=== PATIENT | female | born 1990 | race Caucasian/White ===

== ENCOUNTER 2021-03-19 07:29 | Day surgery (SDC) | payer OTHER, SELFPAY ==
--- NOTE | 2021-03-18 09:25 | P.CONAN_ITS ---
Documented by User: Mell Leroy NP 03/18/21 09:25 HPI - Anesthesia Eval Consult details Narrative: 30yo F for Upper Endoscopy [facility] Past Medical History Medical History Abnormal colonoscopy Arthritis Asthma Crohn's disease Surgical History Surgical History (Updated 03/19/21 @ 08:21 by Batool Macdonald MD) H/O colonoscopy History of esophagogastroduodenoscopy (EGD) Social History Social History Patient Tobacco Use Status: Never used Tobacco Are you DNR?: No Advance Directives: No Advance Directives Information Provided: Yes Recently lost weight without trying: No Nutrition Risks: No Nutritional Risk FDLMP: 03/15/21 Meds Allergies Allergy/AdvReac Type Severity Reaction Status Date / Time azathioprine [From Imuran] Allergy Severe gi bleed Verified 03/19/21 08:12 amoxicillin [From Augmentin] Allergy Unknown Unknown Verified 03/18/21 14:22 clavulanic acid Allergy Unknown Unknown Verified 03/18/21 14:22 [From Augmentin] cefaclor [From Ceclor] Allergy Unknown Verified 03/18/21 14:21 Home Medications Medication Instructions Recorded Confirmed Last Taken Type adalimumab 40 mg/0.8 mL 40 mg SUBCUT Q2W 03/12/21 03/12/21 Unknown History subcutaneous syringe kit (Humira) mesalamine 800 mg tablet,delayed 800 mg PO BID 03/12/21 03/12/21 Unknown History release omeprazole 40 mg capsule,delayed 40 mg PO DAILY 03/12/21 03/12/21 Unknown History release Exam Exam Date and Time: March 18, [id number] Assessment and Plan Assessment Anesthesia Assessment: Chart Reviewed Documented by User: Batool Macdonald MD 03/19/21 08:23 [facility] Past Medical History Medical History Abnormal colonoscopy Arthritis Asthma Crohn's disease Family History Family history of problems with anesthesia: No Surgical History Surgical History (Updated 03/19/21 @ 08:21 by Batool Macdonald MD) H/O colonoscopy History of esophagogastroduodenoscopy (EGD) History of Problems with Anesthesia: No Social History Social History Patient Tobacco Use Status: Never used Tobacco Are you DNR?: No Advance Directives: No Advance Directives Information Provided: Yes Recently lost weight without trying: No Nutrition Risks: No Nutritional Risk FDLMP: 03/15/21 Meds Allergies Allergy/AdvReac Type Severity Reaction Status Date / Time azathioprine [From Imuran] Allergy Severe gi bleed Verified 03/19/21 08:12 amoxicillin [From Augmentin] Allergy Unknown Unknown Verified 03/18/21 14:22 clavulanic acid Allergy Unknown Unknown Verified 03/18/21 14:22 [From Augmentin] cefaclor [From Ceclor] Allergy Unknown Verified 03/18/21 14:21 Home Medications Medication Instructions Recorded Confirmed Last Taken Type adalimumab 40 mg/0.8 mL 40 mg SUBCUT Q2W 03/12/21 03/12/21 Unknown History subcutaneous syringe kit (Humira) mesalamine 800 mg tablet,delayed 800 mg PO BID 03/12/21 03/12/21 Unknown History release omeprazole 40 mg capsule,delayed 40 mg PO DAILY 03/12/21 03/12/21 Unknown History release Exam Height,Weight and Vital Signs: Height 5 ft 4 in Weight 72 kg Vital Signs Temp Pulse Resp BP Pulse Ox 03/19/21 08:01 98.8 F 98 18 122/79 97 Pertinent Lab Results Pertinent Lab Results: Lab Results 03/19/21 Range/Units 07:45 Urine Test NEGATIVE (NEGATIVE) Airway Mallampati Class: II TM Dist: >3cm Neck ROM: Full Loose/Missing/Broken Teeth: No Heart: RRR Lungs: CTAB Assessment and Plan Assessment Anesthesia Assessment: Anesthesia Plan Discussed Final Anesthetic Review Family History of Problems with Anesthesia: No History of Problems with Anesthesia: No NPO: Yes ASA Class: II Final Preanesthetic Review: No Changes in Pt Med Stat, Meds/Allgs Chart Reviewed, Consent Obtained/Reviewed and Anes Risks/Benef Reviewed Patient Risk: Low Procedure Risk: Low Assessment/Block/Sedation in SS: Assess/Block/Sedation-SS Anesthetic Plan Anesthetic Plan: MAC: Disposition: Standard PACU
[2021-03-19 08:01] VITALS: BP 122/79; PULSE 98; RESP 18; TEMP 37.1; O2SAT 97; BMI 27.2
[2021-03-19 08:03] LABS: UPreg QC Valid YES; Urine Pregnancy NEGATIVE (NEGATIVE)
--- NOTE | 2021-03-19 08:34 | P.HPSUR_ITS ---
Pre-Procedural Eval Section A Date of Service: 03/19/21 Section B Chief Complaint: epigastric pain Details of Present Illness: see H&P Relevant Family History (Specify if Yes): No Relevant Social History: None Present Medications: see Short Stay Collaborative assessment Medical History: Significant History Allergies: Allergies Allergy/AdvReac Type Severity Reaction Status Date / Time azathioprine [From Imuran] Allergy Severe gi bleed Verified 03/19/21 08:12 amoxicillin [From Augmentin] Allergy Unknown Unknown Verified 03/18/21 14:22 clavulanic acid Allergy Unknown Unknown Verified 03/18/21 14:22 [From Augmentin] cefaclor [From Ceclor] Allergy Unknown Verified 03/18/21 14:21 Review of Systems Sugical H&P ROS: Negative: Constitution, Cardiovascular, Respiratory, Neurological, Psychiatric, Hem-Onc, Allergic/Immunologic, Gastrointestinal, Ge nitourinary, Musculoskeletal, Integumentary, Endocrine and Eyes/Ears/Nose/Throat Exam Surgical H&P Exam: Normal: HEENT, Normal: Heart, Normal: Lungs, Normal: Extremities, Normal: Abdomen, Normal: Skin and Normal: Neurological Plan Diagnosis/Plan: Unchanged I have reviewed the history and physical and performed a pertinent physical examination on my patient. No changes have occurred unless specified.
[2021-03-19] MEDS: Lactated Ringers 1,000 ML 100 ML IVCONT (08:49)
[2021-03-19 08:57] VITALS: BP 110/65; PULSE 71; RESP 18; TEMP 36.1; O2SAT 99
--- NOTE | 2021-03-19 09:00 | PM.OP ---
Brief Operative Note Date of Service: 03/19/21 Pre-op diagnosis: epigastric pain Post-op diagnosis: same Procedure: egd Surgeon: David Hubbard Anesthesia: MAC Was an Shoemaking Finisher used for this Procedure?: No Estimated blood loss (mL): 5 Pathology: other (bxs) Condition: stable Disposition: PACU
[2021-03-19 09:13] VITALS: BP 116/72; PULSE 78; RESP 16; TEMP 36.1; O2SAT 97
--- NOTE | 2021-03-19 09:30 | OP_ITS ---
SURGEON: David Hubbard MD INDICATIONS: Epigastric pain. PREOPERATIVE DIAGNOSIS: POSTOPERATIVE DIAGNOSIS: PROCEDURE PERFORMED: Upper endoscopy with biopsy. ESTIMATED BLOOD LOSS: COMPLICATIONS: ANESTHESIA: ASSISTANTS: SPECIMENS: MEDICATIONS: Monitored anesthesia care. DESCRIPTION OF PROCEDURE: History and physical performed. The risks and benefits of the procedure were explained to the patient. Informed consent was obtained and the patient placed in the left lateral decubitus position. The Olympus video gastroscope was introduced into the esophagus, stomach, duodenum. Examination was performed. The scope was removed. She tolerated the procedure well and was taken to recovery in stable condition. FINDINGS: Esophagus: The esophagus was normal. There was no esophagitis. Biopsies were obtained from the EG junction. Stomach: Stomach showed no evidence of masses or ulcers. There were multiple benign-appearing gastric polyps, largest measuring approximately 15 x 15 mm. Biopsies were obtained from 2 of the polyps. These appeared consistent with fundic gland polyps that were present in the body and fundus. Antral biopsies were obtained to rule out H pylori. Duodenum: The bulb and second portion were normal. Biopsies were obtained from the second portion. IMPRESSION: Gastric polyps. RECOMMENDATION: Follow up with the biopsy results. MD JASPREET Merchant/NIDHI / [id number]
== END 2021-03-19 09:50 | disposition home or self-care (01) ==
PROVIDERS: Nurse Practitioner; PCP Internal Medicine Geriatric Medicine; Visit Provider Internal Medicine Gastroenterology
PROC: 0DJ08ZZ Inspection of Upper Intestinal Tract, Via Natural or Artificial Opening Endoscopic (ICD-10-PCS; CPT 43235; principal; 2021-03-19 08:30)
DX: R10.13 Epigastric pain (principal); K31.7 Polyp of stomach and duodenum; K50.00 Crohn's disease of small intestine without complications; Z79.899 Other long term (current) drug therapy
CPT/HCPCS: 43239; 81025; 88305; 88342

== ENCOUNTER 2022-10-28 06:11 | Day surgery (SDC) | payer BC, SELFPAY ==
--- NOTE | 2022-10-27 08:43 | P.CONAN_ITS ---
Documented by User: Mell Leroy NP 10/27/22 08:43 HPI - Anesthesia Eval Consult details Narrative: 31yo F for Colonoscopy [facility] Past Medical History Medical History Abnormal colonoscopy Arthritis Asthma Crohn's disease Family History Family history of problems with anesthesia: No Surgical History Surgical History H/O colonoscopy History of esophagogastroduodenoscopy (EGD) History of Problems with Anesthesia: No Social History Social History Patient Tobacco Use Status: Never used Tobacco Are you DNR?: No Advance Directives: No Advance Directives Information Provided: Yes Nutrition Risks: No Nutritional Risk Meds Allergies Allergy/AdvReac Type Severity Reaction Status Date / Time azathioprine [From Imuran] Allergy Severe gi bleed Verified 10/28/22 06:41 amoxicillin [From Augmentin] Allergy Unknown Unknown Verified 10/28/22 06:41 clavulanic acid Allergy Unknown Unknown Verified 10/28/22 06:41 [From Augmentin] cefaclor [From Ceclor] Allergy Unknown Verified 10/28/22 06:41 Home Medications Medication Instructions Recorded Confirmed Last Taken Type adalimumab 40 mg/0.8 mL 40 mg subcut Q2W 03/12/21 10/28/22 Unknown History subcutaneous syringe kit (Humira) omeprazole 40 mg capsule,delayed 20 mg PO DAILY 03/12/21 10/28/22 Unknown History release montelukast 10 mg tablet 10 mg PO DAILY 10/27/22 10/27/22 Unknown History Exam Exam Date and Time: October 27, 2022 0843 Assessment and Plan Assessment Anesthesia Assessment: Chart Reviewed Final Anesthetic Review Family History of Problems with Anesthesia: No History of Problems with Anesthesia: No Documented by User: Mary Ann Owusu MD 10/28/22 07:17 [facility] Past Medical History Medical History Abnormal colonoscopy Arthritis Asthma Crohn's disease Surgical History Surgical History H/O colonoscopy History of esophagogastroduodenoscopy (EGD) Social History Social History Patient Tobacco Use Status: Never used Tobacco Are you DNR?: No Advance Directives: No Advance Directives Information Provided: Yes Nutrition Risks: No Nutritional Risk Meds Allergies Allergy/AdvReac Type Severity Reaction Status Date / Time azathioprine [From Imuran] Allergy Severe gi bleed Verified 10/28/22 06:41 amoxicillin [From Augmentin] Allergy Unknown Unknown Verified 10/28/22 06:41 clavulanic acid Allergy Unknown Unknown Verified 10/28/22 06:41 [From Augmentin] cefaclor [From Ceclor] Allergy Unknown Verified 10/28/22 06:41 Home Medications Medication Instructions Recorded Confirmed Last Taken Type adalimumab 40 mg/0.8 mL 40 mg subcut Q2W 03/12/21 10/28/22 Unknown History subcutaneous syringe kit (Humira) omeprazole 40 mg capsule,delayed 20 mg PO DAILY 03/12/21 10/28/22 Unknown History release montelukast 10 mg tablet 10 mg PO DAILY 10/27/22 10/27/22 Unknown History Exam Airway Mallampati Class: II TM Dist: >3cm Neck ROM: Full Heart: rrr Lungs: cta Assessment and Plan Assessment Anesthesia Assessment: Anesthesia Plan Discussed Final Anesthetic Review NPO: Yes ASA Class: II Final Preanesthetic Review: No Changes in Pt Med Stat, Meds/Allgs Chart Reviewed and Consent Obtained/Reviewed Patient Risk: Intermediate Procedure Risk: Intermediate Anesthetic Plan Anesthetic Plan: MAC: Disposition: Standard PACU
[2022-10-28 06:06] VITALS: BMI 27.5
[2022-10-28] MEDS: Lactated Ringers 1,000 ML 100 ML IVCONT (06:33)
[2022-10-28 06:42] VITALS: BP 137/77; PULSE 86; RESP 18; TEMP 36.6; O2SAT 98
[2022-10-28 06:42] LABS: UPreg QC Valid YES; Urine Pregnancy NEGATIVE (NEGATIVE)
--- NOTE | 2022-10-28 07:08 | PC.NURSE ---
last menstrual cycle was 10/11/22
--- NOTE | 2022-10-28 07:32 | P.HPSUR_ITS ---
Pre-Procedural Eval Section A Date of Service: 10/28/22 Section B Chief Complaint: Crohn's disease, unspecified, without complication Details of Present Illness: see H&P no changes Relevant Family History (Specify if Yes): No Relevant Social History: None Present Medications: see Short Stay Collaborative assessment Medical History: No relevant PMH History of Previous Operations: No relevant previous surgery Allergies: Allergies Allergy/AdvReac Type Severity Reaction Status Date / Time azathioprine [From Imuran] Allergy Severe gi bleed Verified 10/28/22 06:41 amoxicillin [From Augmentin] Allergy Unknown Unknown Verified 10/28/22 06:41 clavulanic acid Allergy Unknown Unknown Verified 10/28/22 06:41 [From Augmentin] cefaclor [From Ceclor] Allergy Unknown Verified 10/28/22 06:41 Review of Systems Sugical H&P ROS: Negative: Constitution, Cardiovascular, Respiratory, Neurological, Psychiatric, Hem-Onc, Allergic/Immunologic, Gastrointestinal, Genitourinary, Musculoskeletal, Integumentary, Endocrine and Eyes/Ears/Nos e/Throat Exam Surgical H&P Exam: Normal: HEENT, Normal: Heart, Normal: Lungs, Normal: Extremities, Normal: Abdomen, Normal: Skin and Normal: Neurological Plan Diagnosis/Plan: Unchanged I have reviewed the history and physical and performed a pertinent physical examination on my patient. No changes have occurred unless specified. Time Spent With Patient Time: Total time managing care of this patient today ____ minutes.
--- NOTE | 2022-10-28 08:02 | PM.OP ---
Brief Operative Note Date of Service: 10/28/22 Pre-op diagnosis: crohns Post-op diagnosis: same Procedure: colonoscopy Surgeon: David Hubbard Anesthesia: MAC Was an Replanting Machine Crewman used for this Procedure?: No Estimated blood loss (mL): 5 Pathology: other Condition: stable Disposition: PACU
[2022-10-28 08:06] VITALS: BP 110/60; PULSE 95; RESP 16; TEMP 36.2; O2SAT 95
--- NOTE | 2022-10-28 08:25 | OP_ITS ---
DATE OF SERVICE: 10/28/2022 SURGEON: David Hubbard MD INDICATIONS: Crohn disease. PREOPERATIVE DIAGNOSIS: POSTOPERATIVE DIAGNOSIS: PROCEDURE PERFORMED: Colonoscopy to the terminal ileum with biopsy. ESTIMATED BLOOD LOSS: COMPLICATIONS: ANESTHESIA: Monitored anesthesia care. ASSISTANTS: SPECIMENS: DESCRIPTION OF PROCEDURE: A history and physical were performed. The risks and benefits of the procedure were explained to the patient. Informed consent was obtained. The patient was placed in the left lateral decubitus position. A digital rectal exam was performed and was found to be normal. The Olympus pediatric video colonoscope was introduced into the rectum and advanced to the cecum without difficulty. The cecum was identified by transillumination, palpation, and identification of the ileocecal valve. Examination was performed. The scope was removed. She tolerated the procedure well and was returned to the recovery area in stable condition. FINDINGS: The terminal ileum was normal. Biopsies were obtained from the terminal ileum in 2 locations. This was explored for approximately 10 to 15 cm. There was no evidence of active Crohn disease endoscopically. Biopsies were obtained throughout the colon where the visualized colonic mucosa appeared within normal limits without evidence of masses, ulcers, or polyps. No endoscopic activity of Crohn disease was identified. Retroflexed examination was normal. The quality of prep was good. IMPRESSION: Crohn disease. RECOMMENDATION: Follow up the biopsy results. MD JASPREET Merchant/MANNYL / [id number]
[2022-10-28 08:36] VITALS: BP 107/63; PULSE 61; RESP 16; TEMP 36.9; O2SAT 97
== END 2022-10-28 09:35 | disposition home or self-care (01) ==
PROVIDERS: Nurse Practitioner; PCP Internal Medicine Geriatric Medicine; Visit Provider Internal Medicine Gastroenterology
PROC: 0DJD8ZZ Inspection of Lower Intestinal Tract, Via Natural or Artificial Opening Endoscopic (ICD-10-PCS; CPT 45378; principal; 2022-10-28 07:30)
DX: K50.90 Crohn's disease, unspecified, without complications (principal); K21.9 Gastro-esophageal reflux disease without esophagitis; J45.909 Unspecified asthma, uncomplicated; M06.9 Rheumatoid arthritis, unspecified; Z79.899 Other long term (current) drug therapy; Z88.1 Allergy status to other antibiotic agents; Z88.8 Allergy status to other drugs, medicaments and biological substances
CPT/HCPCS: 45380; 81025; 88305

== ENCOUNTER 2024-10-03 11:16 | Outpatient (REF) | payer BC, SELFPAY ==
[2024-10-03 11:57] LABS: Hematocrit 40.8 % (37.0-47.0); Hemoglobin 13.6 g/dl (12.0-16.0); Mean Corpuscular HGB Conc 33.3 g/dl (31.0-35.0); Mean Corpuscular Hemoglobin 31.3 pg (27.0-33.0); Mean Corpuscular Volume 93.8 fL (80.0-98.0); Mean Platelet Volume 10.5 fL (9.4-12.3); Platelet Count 357 X10*3/uL (160-400); Red Blood Count 4.35 X10*6/uL (4.20-5.50); Red Cell Distribution Width 12.3 % (11.0-16.0); White Blood Count 9.2 X10*3/uL (4.8-10.8)
[2024-10-03 12:34] LABS: Alanine Aminotransferase 23 U/L (0-31); Albumin Level 4.4 g/dL (3.5-5.0); Alkaline Phosphatase 115 U/L (39-117); Aspartate Amino Transferase 20 U/L (5-31); Bilirubin Direct 0.2 mg/dL (0.0-0.5); Bilirubin Total 0.4 mg/dL (0.0-1.0); Lipase 30 U/L (8-78); Total Protein 7.4 g/dL (6.5-8.0)
--- OUTSIDE RECORDS SUMMARY | 2024-10-03 12:50 | XMS_ITS | Patient Health Record ---
Author Organization [facility] Address [address] [place] [address] Care Team Providers Care Provider Network Manager Name Role Phone Aleksey SAAVEDRA, Michelle Primary Care Provider David Horn Jr Unavailable Allergies Allergen (clinical drug ingredient) Drug/Non Drug Allergy documented on EMR Reaction Allergy Type Onset Date Status amoxicillin / clavulanate Augmentin Unknown Drug Allergy Active Results Component Value Reference Range Notes Complete Blood Count no Diff (Not yet reviewed by provider) Interpretation: Performing Lab:[facility], [address] [place] [phone] Notes/Report: White Blood Count 9.2 4.8-10.8 X10*3/uL Red Blood Count 4.35 4.20-5.50 X10*6/uL Hemoglobin 13.6 12.0-16.0 g/dl Hematocrit 40.8 37.0-47.0 % Mean Corpuscular Volume 93.8 80.0-98.0 fL Mean Corpuscular Hemoglobin 31.3 27.0-33.0 pg Mean Corpuscular HGB Conc 33.3 31.0-35.0 g/dl Red Cell Distribution Width 12.3 11.0-16.0 % Platelet Count 357 160-400 X10*3/uL Mean Platelet Volume 10.5 9.4-12.3 fL NRBC Pct Auto 0.0 0.0-0.2 /100WBC NRBC Abs Auto 0.000 0.0-0.012 X10*3/uL Liver Panel (Not yet reviewe d by provider) Interpretation: Performing Lab:[facility], [address] [place] [phone] Notes/Report: Bilirubin Total 0.4 0.0-1.0 mg/dL Bilirubin Direct 0.2 0.0-0.5 mg/dL Aspartate Amino Transferase 20 5-31 U/L Alanine Aminotransferase 23 0-31 U/L Total Protein 7.4 6.5-8.0 g/dL Albumin Level 4.4 3.5-5.0 g/dL Alkaline Phosphatase 115 39-117 U/L Lipase (Not yet reviewed by provider) Interpretation: Performing Lab:[facility], [address] [place] [phone] Notes/Report: Lipase 30 8-78 U/L Reason For Referral No Information Medications Medication SIG (Take, Route, Frequency, Duration) Notes Start Date End Date Status Omeprazole 20 MG 1 capsule 30 minutes before morning meal Orally Once a day Active Montelukast Sodium 10 MG TAKE ONE TABLET BY MOUTH EVERY DAY Oral for 90 Active Humira Pen 40 MG/0.4ML Subcutaneous for 28 Active Multi Vitamin - 1 tablet Orally Once a day for 30 day(s) Active Mesalamine 800 MG TAKE TWO TABLETS BY MOUTH 3 TIMES A DAY for 30 days Active Immunizations Vaccine Route Administration Date Status Comme nts Influenza Unknown 05/10/2023 Administered Influenza Unknown 03/19/2024 Administered Social History Tobacco Use: Social History Observation Description Date Details (start date - stop date) Never Smoker NA - NA Tobacco Use/Smoking Question Answer Notes Patient is a nonsmoker Alcohol Screen Question Answer Notes Did you have a drink contain ing alcohol in the past year? Yes How often did you have a dri nk containing alcohol in the past year? Monthly or less (1 point) How many drinks did you have on a typical day when you were drinking in the past year? 1 or 2 drinks (0 point) How often did you have 6 or more drinks on one occasion in the past year? Never (0 point) Points 1 Interpretation Negative Problems Problem Type SNOMED Code ICD Code Onset Dates Problem Status W/U Status Risk Notes Problem Flatulence, eructation and gas pain (759556313) Bloating (R14.0) Active confirmed Problem 835855234 Gastroesophageal reflux disease without esophagitis (K21.9) Active confirmed Problem Benign neoplasm of stomach (90513904) Gastric polyps (K31.7) Active confirmed Problem Crohns disease (93759275) Crohns disease (K50.90) Active confirmed Problem RUQ pain (R10.11) Active confirmed Problem [id number] Crohn's disease without complication, unspecified gastrointestinal tract location (K50.90) Active confirmed Vital Signs Temperature 98.0 degrees Fahrenheit 07/03/2024 Blood pressure diastolic 00 mm Hg 07/03/2024 Height 64 in 07/03/2024 Blood pressure systolic 000 mm Hg 07/03/2024 Weight 161 lbs 07/03/2024 BMI 27.63 kg/m2 07/03/2024 Encounters Encounter Location Date Provider Diagnosis [facility] [address] [place] [phone] 07/03/2024 David Hubbard Jr Crohns disease K50.90 and Gastroesophageal reflux disease without esophagitis K21.9 [facility] [address] [place] [phone] 12/07/2023 David Hubbard Jr [facility] [address] [place] [phone] 10/02/2024 David Hubbard Jr RUQ pain R10.11 and Bloating R14.0 Assessments Encounter Date Diagnosis (ICD Code) Assessment Notes Treatment Notes Treatment Clinical Notes Section Notes 07/03/2024 Gastroesophageal reflux disease without esophagitis (ICD-10 - K21.9) We discussed gastroesophageal reflux disease today. We discussed Crohn's disease. She is doing well. She will continue her present medications. We discussed diet, lifestyle modifications, and weight management regarding the treatment of reflux. We reviewed her previous endoscopic workup today. Today's visit was 30 minutes. 07/03/2024 Crohns disease (ICD-10 - K50.90) Crohn disease material was printed We discussed gastroesophageal reflux disease today. We discussed Crohn's disease. She is doing well. She will continue her present medications. We discussed diet, lifestyle modifications, and weight management regarding the treatment of reflux. We reviewed her previous endoscopic workup today. Today's visit was 30 minutes. 10/02/2024 Bloating (ICD-10 - R14.0) 10/02/2024 RUQ pain (ICD-10 - R10.11) Plan Of Treatment Pending Test Test Name Order Date LIVER PROFILE 10/02/2024 LIPASE 10/02/2024 CBC w/o DIFF 10/02/2024 US ABD 10/02/2024 Complete Blood Count no Diff 10/03/2024 Liver Panel 10/03/2024 Lipase 10/03/2024 Future Test Test Name Order Date COLONOSCOPY 08/12/2022 Next Appt Details Provider Name:David sanchez , 07/07/2025 09:20:00 AM, [address] [facility], [address], [place], [address], Insurance Providers Payer Name Payer Address Payer Phone Subscriber Number Group Number Insured Name Patient Relationship to Insured Coverage Start Date Coverage End Date [facility] [address] [place], [place] [id number] SEVERO KUO Self - patient is the insured Medical (General) History Medical History History ICD Code Asthma Crohn's disease diagnosed ~ 2000, at that time she had genetic testing done through [facility]. She was followed by pediatric GI at [facility] and had several endoscopies and a colonoscopy. 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 Colonoscopy 07/2014, some scarring of terminal ileum, biopsies fairly unremarkable, colonoscopy 11/18 biopsies normal including terminal ileum Rheumatoid arthritis pneumonia/covid positive may 2022 Gastroesophageal reflux disease Surgical History Surgery Date(Month/Year) c section 03/18/2024
--- OUTSIDE RECORDS SUMMARY | 2024-10-03 12:50 | XMS_ITS ---
Author Organization [facility] Address [address] [place] [id number] Care Team Providers Care Pedodontist Name Role Phone Aleksey SAAVEDRA, Michelle Primary Care Provider David Horn Jr Unavailable [phone] Allergies Allergen (clinical drug ingredient) Drug/Non Drug Allergy documented on EMR Reaction Allergy Type Onset Date Status amoxicillin / clavulanate Augmentin Unknown Drug Allergy Active REASON FOR VISIT Patient presents today for crohns Medications Medication SIG (Take, Route, Frequency, Duration) [...] TIMES A DAY for 30 days Active Social History Tobacco Use: Social History Observation [...] Never (0 point) Points 1 Interpretation Negative Vital Signs Temperature 98.0 degrees Fahrenheit 07/03/19 25 Blood pressure systolic 000 mm Hg 07/03/19 25 Blood pressure diastolic 00 mm Hg 025 Height 64 in 07/03/2024 Weight 161 lbs 07/03/2024 BMI 27.63 kg/m2 07/03/2024 Encounters Encounter Location Date Provider Diagnosis [facility] [address] [place] [address] 07/03/2024 David Hubbard Jr Crohns disease K50.90 and Gastroesophageal reflux disease without esophagitis K21.9 Assessments Encounter Date Diagnosis (ICD Code) Assessment Notes Treatment Notes Treatment Clinical Notes Section Notes 07/03/2024 Crohns disease (ICD-10 - K50.90) Crohn disease material was printed We discussed gastroesophageal reflux disease today. We discussed Crohn's disease. She is doing well. She will continue her present medications. We discussed diet, lifestyle modifications, and weight management regarding the treatment of reflux. We reviewed her previous endoscopic workup today. Today's visit was 30 minutes. 07/03/2024 Gastroesophageal reflux disease without esophagitis (ICD-10 - K21.9) We discussed gastroesophageal reflux disease today. We discussed Crohn's disease. She is doing well. She will continue her present medications. We discussed diet, lifestyle modifications, and weight management regarding the treatment of reflux. We reviewed her previous endoscopic workup today. Today's visit was 30 minutes. Plan Of Treatment Treatment Notes Assessment Notes Crohns disease Crohn disease materi al was printed Next Appt Details Follow Up: 1 Year, Reason: Provider Name:David sanchez Jr, 07/07/2025 09:20:00 AM, [address] [place] [address], [address], [place], [phone], Progress Notes * SEVERO KUO ADOB: 2 (33 yo F)Acc No.[id number]:07/03/2024 Progress Notes Patient:?SEVERO KUO Provider:?David Hubbard MD :1990???Age:33 Y???Sex:Female D ate:07/03/2024 Address:[address] [place], [place] [id number] Pcp:Michelle Ryder MD Subjective: * Chief Complaints: * ???1. Patient presents today for crohns. * HPI: ???New symptom(s):? That he is a pleasant 33-year-old woman seen today in followup of Crohn's disease and gastroesophageal reflux disease. She was last seen in June 2023. Since that time she's done well. ?Her daughter, Christy, was born by section approximately 3 months ago. The was complicated by gestational diabetes but did not require insulin and was well-controlled with diet. Her Crohn's disease remained quiescent during her . It is generally remain the same since. She continues on Humira and mesalamine, and reports bowel movements are usually every other day. There is no rectal bleeding. She was somewhat anemic during her and did take iron supplements. We discussed that this is common. ?Reflux symptoms are well-controlled on OTC omeprazole, as it is not covered by her insurance. She has no dysphagia, hematemesis, or melena. She does note symptoms of reflux which can be fairly strong when she forgets to take medication. We discussed use of OTC liquid antacids for breakthrough symptoms. 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 She was followed by pediatric GI at [facility] and had several endoscopies and a colonoscopy. 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 Colonoscopy 07/2014, some scarring of terminal ileum, biopsies fairly unremarkable, colonoscopy 11/18 biopsies normal including terminal ileum, Rheumatoid arthritis, Pneumonia/covid positive may 2022, Gastroesophageal reflux disease. * Surgical History:?c section 03/18/2024. * Family History:?Father: blanca e, IBS.?Mother: alive.? NO HX OF COLON CANCER. NO FAMILY HISTORY OF LIVER CANCER. BROTHER PAST HX OF CROHN/ BROTHER NOW WELL. * Social History:?Tobacco Use:?Tobacco Use/Smoking?Patient is a?nonsmoker.?Drugs/Alcohol:?Alcohol Screen?Did you have a drink containing alcohol in the past year??Yes,?How often did you have a drink containing alcohol in the past year??Monthly or less (1 point), How many drinks did you have on a typical day when you were drinking in the past year??1 or 2 drinks (0 point),?How often did you have 6 or more drinks on one occasion in the past year??Never (0 point),?Points?1,?Interpretation?Negative.?Miscellaneous:?Marital status: single. 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 * Medications:?Taking Multi Vi tamin - Tablet 1 tablet Orally Once a day, Taking Humira Pen 40 MG/0.4ML Pen-injector Kit Subcutaneous , Taking Montelukast Sodium 10 MG Tablet TAKE ONE TABLET BY MOUTH EVERY DAY Oral , Taking Omeprazole 20 MG Capsule Delayed Release 1 capsule 30 minutes before morning meal Orally Once a day, Taking Mesalamine 800 MG Tablet Delayed Release TAKE TWO TABLETS BY MOUTH 3 TIMES A DAY , Medication List reviewed and reconciled with the patient * Allergies:?Augmentin. Objective: * Vitals:?Wt: 161 lbs, Ht: 64 in, BMI:27.63 Index, BP: 000/00 mm Hg, Temp: 98.0. * Examination: ???General Examination: ???On examination today, she appears well. Skin is anicteric. Lungs are clear. Heart shows regular rate and rhythm. Abdomen is soft without focal mass or tenderness. Her transverse lower abdominal incision is well-healed. Assessment: * Assessment: 1.?Crohns disease - K50.90 ( Primary)?2.?Gastroesophageal reflux disease without esophagitis - K21.9? We discussed gastroesophagea l reflux disease today. We discussed Crohn's disease. She is doing well. She will continue her present medications. We discussed diet, lifestyle modifications, and weight management regarding the treatment of reflux. We reviewed her previous endoscopic workup today. Today's visit was 30 minutes. Plan: * Treatment: * Procedure Codes:?G9745 DOC R SN FOR NOT SCREEN/REC F/U HBP * Preventive Medicine:? ??Counseling:?Care goal follow-up plan:?Above Normal BMI Follow-up?Giving encouragement to exercise,?BMI management provided?Yes.? * Follow Up:?1 Year * * Sign off status: Completed true * Provider:?David Hubbard MD Date:?0 07/03/2024 Generated for Juanjo sung/Jarocho/Abneritting on:?10/03/2024 12:50 PM EDT History and Physical Notes * HPI (History of Present Illness) Category Sub-Category Detail Notes Category Not es New symptom(s) That he is a pleasant 33-year-old woman seen today in followup of Crohn's disease and gastroesophageal reflux disease. She was last seen in June 2023. Since that time she's done well. Her daughter, Christy, was born by section approximately 3 months ago. The was complicated by gestational diabetes but did not require insulin and was well-controlled with diet. Her Crohn's disease remained quiescent during her . It is generally remain the same since. She continues on Humira and mesalamine, and reports bowel movements are usually every other day. There is no rectal bleeding. She was somewhat anemic during her and did take iron supplements. We discussed that this is common. Reflux symptoms are well-controlled on OTC omeprazole, as it is not covered by her insurance. She has no dysphagia, hematemesis, or melena. She does note symptoms of reflux which can be fairly strong when she forgets to take medication. We discussed use of OTC liquid antacids for breakthrough symptoms. Examination Category Sub-Category Detail Notes Category Not es General Examination On exami nation today, she appears well. Skin is anicteric. Lungs are clear. Heart shows regular rate and rhythm. Abdomen is soft without focal mass or tenderness. Her transverse lower abdominal incision is well-healed.
--- OUTSIDE RECORDS SUMMARY | 2024-10-03 12:50 | XMS_ITS ---
Author Organization [facility] Address [address] [place] [address] [place] [phone] Care Team Providers Care Technology Assistant Name Role Phone Aleksey SAAVEDRA, Michelle Primary Care Provider Jv Hubbard Jr, David Mcclellan REASON FOR VISIT refill mesalamine Medications Medication SIG (Take, Route, Fr equency, Duration) Notes Start Date End Date Status Mesalamine 800 MG TAKE TWO TABLETS BY MOUTH 3 TIMES A DAY for 30 days Active Encounters Encounter Location Date Provider Diagnosis [facility] [address] [place] [phone] 12/07/2023 David Hubbard Jr Plan Of Treatment Medication Medication Name Sig Start Date Stop Date Notes Mesalamine 800 MG TAKE TWO TABLETS BY MOUTH 3 TIMES A DAY for 30 days Next Appt Details Provider Name:David sanchez Jr, 07/07/2025 09:20:00 AM, [address] [place] [address], [place] [address], [place], [phone], Progress Notes * SEVERO KUO ADOB: [birth year] (33 yo F)Acc No.[id number]:12/07/2023 Patient:?ROBERT KUORICIA Yamel :1990???Age:33 Y???Sex:Female Address:[address] [place] [address], [address] * Refills? Refill Mesalamine Tablet Delayed Release, 800 MG, 180 Tablet, TAKE TWO TABLETS BY MOUTH 3 TIMES A DAY, 30 days, Refills=6 * true * Date:? Generated for Juanjo sung/Jarocho/Mendoza on:?10/03/2024 12:50 PM EDT
--- OUTSIDE RECORDS SUMMARY | 2024-10-03 12:50 | XMS_ITS | Referral Summary ---
Author Organization [facility] Address [address] [place] [address] Care Team Providers Care Silk Screen Printer Helper Name Role Phone Michelle Ryder Primary Care Provider [phone] Encounters Date Type Department Care Team Description 07/17/2024 Results Follow-Up [facility] [address] [place] [id number] [employer] Placement Services Counselor: Brandt Cueto MD 07/17/2024 Orders Only [facility] [address] [place] [id number] Career Placement Services Counselor: Brandt Cueto MD 07/17/2024 2:20 PM EST Follow-Up [facility] [address] [place] [phone] Career Placement Services Counselor: Brandt Cueto MD 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 Cefaclor Rash Ciprofloxacin Hcl Rash 01/15/2014 Azathioprine GI bleeding High Medications folic acid (FOLVITE) 1 mg tablet Take 1 mg by mouth daily. Active albuterol (PROAIR HFA,VENTOLIN HFA) 90 mcg inhaler Take 90 mcg by mouth as needed. 4 Active montelukast (SINGULAIR) 10 mg tablet Take 10 mg by mouth daily. Active mesalamine (ASACOL HD) 800 mg EC tablet Take 800 mg by mouth 2 times a day. Active budesonide-formote roL (SYMBICORT) 80-4.5 mcg inhaler Take 80 mcg by mouth as needed. 4 Active acetaminophen (TYLENOL) 500 mg tablet Take 500 mg by mouth as needed. 3 Active omeprazole (PriLOSEC) 20 mg capsule 20 mg every 24 hours. Active adalimumab (Humira,CF, Pen) 40 mg/0.4 mL pen injector kitIndications:Ent eropathic arthropathies Inject 0.4 mL (40 mg total) under the skin every 14 days. 0.8 mL 5 5 01/14/20 25 Active Active Problems Problem Noted Date Diagnosed Date Less than 8 weeks gestation of 024 Assessment & Plan (07/19/2023 3:44 PM EST): Ms. Philip tested positive for . She believes that she is in her first trimester of . I told her that Humira is not likely to cause problems during . Patients with inflammatory bowel disease have continued on TNF inhibitors and there has been no significantly increased risk of defects or problems with associated with continued TNF inhibition during . High risk medication use 02/05/2020 Esophageal reflux 08/13/2013 Crohn's disease 01/22/2013 Assessment & Plan (07/17/2024 3:04 PM EST): Her Crohn's disease is controlled on Humira CF 40 mg taken subcutaneously every other week and Asacol 800 mg taken by mouth twice daily. Assessment & Plan (07/19/2023 3:39 PM EST): Her Crohn's disease is controlled on Humira CF 40 mg taken subcutaneously every other week and Asacol 800 mg taken by mouth twice daily. Assessment & Plan (08/10/2022 4:01 PM EDT): Her Crohn's disease is controlled on Humira CF 40 mg taken subcutaneously every other week and Asacol 800 mg taken by mouth twice daily. Assessment & Plan (08/11/2021 1:20 PM EDT): Her Crohn's disease is??controlled on Humira CF 40 mg taken subcutaneously every other week and Asacol 800 mg taken by mouth twice??daily. Assessment & Plan (02/10/2021 10:38 AM EDT): Her Crohn's disease is??controlled on Humira CF 40 mg taken subcutaneously every other week and Asacol 800 mg taken by mouth twice??daily. Assessment & Plan (08/05/2020 10:04 AM EST): Her Crohn's disease is??controlled on Humira CF 40 mg taken subcutaneously every other week and Asacol 800 mg taken by mouth twice??daily. Assessment & Plan (02/05/2020 10:05 AM EDT): Her Crohn's disease is??controlled on Humira CF 40 mg taken subcutaneously every other week and Asacol 800 mg taken by mouth twice??daily. Assessment & Plan (08/01/2019 1:32 PM EST): Her Crohn's disease is??controlled on Humira CF 40 mg taken subcutaneously every other week and Asacol 800 mg taken by mouth twice??daily. Assessment & Plan (01/15/2019 11:29 AM EDT): Her Crohn's disease is??controlled on Humira 40 mg taken subcutaneously every other week and Asacol 800 mg taken by mouth twice daily. Assessment & Plan (07/17/2018 9:19 AM EST): Her Crohn's disease is??controlled on Humira 40 mg taken subcutaneously every other week and Asacol 800 mg taken by mouth twice daily. Assessment & Plan (01/09/2018 11:11 AM EDT): Her Crohn's disease is controlled on Humira 40 mg taken subcutaneously every other week and Asacol 800 mg taken by mouth three times daily. Assessment & Plan (05/25/2017 8:30 AM EST): Her Crohn's disease is controlled on Humira 40 mg taken subcutaneously every other week and Asacol 800 mg taken by mouth three times daily. Arthritis in Crohn's disease 01/22/2013 Assessment & Plan (07/17/2024 3:04 PM EST): Her arthritis of inflammatory bowel disease is controlled on Humira CF 40 mg taken subcutaneously every other week since August 16, 2011. I suggested that she continue taking Humira CF 40 mg subcutaneously every other week and her other medications at their present doses. She may take acetaminophen 500 mg 2 tablets by mouth up to 3 times daily as needed for joint pain. I again advised her that observing appropriate precautions to avoid coronavirus infection is most appropriate: social distancing, wearing a facemask when exposed to individuals outside of her immediate family unit, rigorous handwashing with soap and warm water for 20 seconds, use of hand sanitizers, and avoidance of large groups of people or any number of unvaccinated individuals. Laboratory studies will be performed today and in 6 months to assess her CBC, ESR, and CRP. Ms. Philip will return to see me in about 1 year, so that I may assess her response to continued treatment, review the results of laboratory testing with her, and make any necessary changes in therapy. She will return sooner, if the need arises. Assessment & Plan (07/19/2023 3:47 PM EST): Her arthritis of inflammatory bowel disease is controlled on Humira CF 40 mg taken subcutaneously every other week since August 16, 2011. I suggested that she continue taking Humira CF 40 mg subcutaneously every other week and her other medications at their present doses. She may take acetaminophen 500 mg 2 tablets by mouth up to 3 times daily as needed for joint pain. I again advised her that observing appropriate precautions to avoid coronavirus infection is most appropriate: social distancing, wearing a facemask when exposed to individuals outside of her immediate family unit, rigorous handwashing with soap and warm water for 20 seconds, use of hand sanitizers, and avoidance of groups of more than 10 people or any number of unvaccinated individuals. I recommended the use of home COVID-19 testing before gathering with groups of friends or family. Laboratory studies will be performed today to assess her QuantiFERON TB Gold test and in 6 months to reassess her CBC, ESR, and CRP. Ms. Philip will return to see me in about 1 year, so that I may assess her response to continued treatment, review the results of laboratory testing with her, and make any necessary changes in therapy. She will return sooner, if the need arises. Assessment & Plan (08/10/2022 4:00 PM EDT): Her arthritis of inflammatory bowel disease is controlled on Humira CF 40 mg taken subcutaneously every other week since August 16, 2011. I suggested that she continue taking Humira CF 40 mg subcutaneously every other week and her other medications at their present doses. She may take acetaminophen 500 mg 2 tablets by mouth up to 3 times daily as needed for joint pain. I again advised her that observing appropriate precautions to avoid coronavirus infection is most appropriate: social distancing, wearing a facemask when exposed to individuals outside of her immediate family unit, rigorous handwashing with soap and warm water for 20 seconds, use of hand sanitizers, and avoidance of groups of more than 10 people or any number of unvaccinated individuals. I recommended the use of home COVID-19 testing before gathering with groups of friends or family. Laboratory studies will be performed today to reassess her CBC, ESR, and CRP. Ms. Philip will return to see me in about 6 months, so that I may assess her response to continued treatment, review the results of laboratory testing with her, and make any necessary changes in therapy. She will return sooner, if the need arises. Assessment & Plan (08/11/2021 1:20 PM EDT): Her arthritis of inflammatory bowel disease is controlled on Humira CF 40 mg taken subcutaneously every other week since August 16, 2011.? I suggested that she continue taking Humira CF??40 mg??subcutaneously every other week and??her other medications at their present doses. She may take acetaminophen 500 mg 2 tablets by mouth up to 3 times daily as needed for joint pain. ?? I again advised her that observing appropriate precautions to avoid coronavirus infection is most appropriate: social distancing, wearing a facemask when exposed to individuals outside of her immediate family unit, rigorous handwashing with soap and warm water for 20 seconds, use of hand sanitizers, and avoidance of groups of more than 10 people or any number of unvaccinated individuals. I recommended the use of home COVID-19 testing before gathering with groups of friends or family. I recommended that she receive another booster dose of maternal COVID-19 vaccine. She need not withhold Humira CF around the time of vaccination. ?? Laboratory studies will be performed today to reassess her CBC, ESR, and CRP. ? Ms. Philip will return to see me in about 6 months, so that I may assess her response to continued treatment, review the results of laboratory testing with her, and make any necessary changes in therapy. ??She will return sooner, if the need arises. Assessment & Plan (02/10/2021 10:38 AM EDT): Her arthritis of inflammatory bowel disease is controlled on Humira CF 40 mg taken subcutaneously every other week since August 16, 2011.? I suggested that she continue taking Humira CF??40 mg??subcutaneously every other week and??her other medications at their present doses. She will receive a booster dose of the Moderna COVID-19 vaccine and an influenza vaccination today at a [facility] in [place], [place]. ?? I again advised her that observing appropriate precautions to avoid coronavirus infection is most appropriate: social distancing, wearing a facemask when outdoors or indoors and around unvaccinated individuals, rigorous handwashing for at least 20 seconds, use of hand sanitizers, and avoidance of groups of more than 25 people or any number of unvaccinated individuals. ?? Laboratory studies will be performed today to reassess her CBC, ESR, and CRP. ? Ms. Philip will return to see me in about 6 months, so that I may assess her response to continued treatment, review the results of laboratory testing with her, and make any necessary changes in therapy. ??She will return sooner, if the need arises. Assessment & Plan (08/05/2020 10:03 AM EST): Her arthritis of inflammatory bowel disease is controlled on Humira CF 40 mg taken subcutaneously every other week since August 16, 2011.? I suggested that she continue taking Humira CF??40 mg??subcutaneously every other week and??her other medications at their present doses. ?? I again advised her that observing appropriate precautions to avoid coronavirus infection is most appropriate: social distancing, wearing a facemask when outdoors, rigorous handwashing for at least 20 seconds, use of hand sanitizers, and avoidance of groups of more than 10 people. ?? Laboratory studies will be performed today to reassess her CBC, ESR, and CRP. ? Ms. Philip will return to see me in about 6 months, so that I may assess her response to continued treatment, review the results of laboratory testing with her, and make any necessary changes in therapy. ??She will return sooner, if the need arises. Assessment & Plan (02/05/2020 10:05 AM EDT): Her arthritis of inflammatory bowel disease is controlled on Humira CF 40 mg taken subcutaneously every other week since August 16, 2011.? I suggested that she continue taking Humira CF??40 mg??subcutaneously every other week and??her other medications at their present doses. I told her that the effect of continuing or discontinuing adalimumab therapy on susceptibility to coronavirus is unknown. However, if she was to discontinue adalimumab, it is possible that her disease would become active. I advised her that observing appropriate precautions to avoid coronavirus infection is most appropriate: social distancing, wearing a facemask when outdoors, rigorous handwashing for at least 20 seconds, use of hand sanitizers, and avoidance of groups of more than 10 people. ?? Laboratory studies will be performed today to reassess her CBC, ESR, and CRP. ? Ms. Philip will return to see me in about 6 months, so that I may assess her response to continued treatment, review the results of laboratory testing with her, and make any necessary changes in therapy. ??She will return sooner, if the need arises. Assessment & Plan (08/01/2019 1:32 PM EST): Her arthritis of inflammatory bowel disease is controlled on Humira CF 40 mg taken subcutaneously every other week since August 16, 2011. ? I suggested that she continue taking Humira CF 40 mg subcutaneously every other week and her other medications at their present doses. ?? Laboratory studies will be performed today to reassess her CBC, ESR, and CRP. ? Ms. Philip will return to see me in about 6 months, so that I may assess her response to continued treatment, review the results of laboratory testing with her, and make any necessary changes in therapy. ??She will return sooner, if the need arises. Assessment & Plan (01/15/2019 11:30 AM EDT): Her arthritis of inflammatory bowel disease is controlled on Humira 40 mg taken subcutaneously every other week since August 16, 2011. Ever, she experiences burning at the site of her Humira injection. ? I suggested that she change from Humira to Humira CF 40 mg taken subcutaneously every other week and that she continue taking her other medications at their present doses. ?? Laboratory studies will be performed today to reassess her CBC, ESR, and CRP. ? Ms. Philip will return to see me in about 6 months, so that I may assess her response to continued treatment, review the results of laboratory testing with her, and make any necessary changes in therapy. ??She will return sooner, if the need arises. Assessment & Plan (07/17/2018 9:17 AM EST): Her arthritis of inflammatory bowel disease is controlled on Humira 40 mg taken subcutaneously every other week since August 16, 2011 ? She will continue taking Humira 40 mg subcutaneously every other week and her other medications at their present doses. ?? Laboratory studies will be performed today to reassess her CBC, ESR, and CRP. ? Ms. Philip will return to see me in about 6 months, so that I may assess her response to continued treatment, review the results of laboratory testing with her, and make any necessary changes in therapy. ??She will return sooner, if the need arises. Assessment & Plan (01/09/2018 11:13 AM EDT): Her arthritis of inflammatory bowel disease is controlled on Humira 40 mg taken subcutaneously every other week since August 16, 2011 ? She will continue taking Humira 40 mg subcutaneously every other week and her other medications at their present doses. ?? Laboratory studies will be performed today to reassess her CBC, ESR, and CRP. She also will have repeat QuantiFERON TB Gold testing performed today. ? Ms. Philip will return to see me in about 6 months, so that I may assess her response to continued treatment, review the results of laboratory testing with her, and make any necessary changes in therapy. She will return sooner, if the need arises. Assessment & Plan (05/25/2017 8:30 AM EST): Her arthritis of inflammatory bowel disease is controlled on Humira 40 mg taken subcutaneously every other week since August 16, 2011 She will continue taking Humira 40 mg subcutaneously every other week and her other medications at their present doses. Laboratory studies will be performed today to reassess her CBC, ESR, and CRP. Ms. Philip will return to see me in about 6 months, so that I may assess her response to continued treatment, review the results of laboratory testing with her, and make any necessary changes in therapy. She will return sooner, if the need arises. Asthma 06/25/2012 Resolved Problems Problem Noted Date Diagnosed Date Resolved Date Low back strain, initial encounter 02/05/2020 08/05/2020 Assessment & Plan (02/05/2020 10:08 AM EDT): Ms. Philip will continue taking acetaminophen for her low back discomfort. She may apply moist heat to her lower back for comfort. I offered to refer her to physical therapy, but she felt that that was not necessary at present. Acute tonsillitis 01/09/2018 01/09/2018 Overview (01/09/2018): History of Acute tonsillitis 2014-06-30 Piriformis syndrome, right 11/18/2015 1 07/26/2016 Leukocytosis 12/10/2014 01/09/2018 Dysmenorrhea 06/25/2012 01/09/2018 Immunizations Immunization Administration Dates Next Due Covid-19 Monovalent Vaccine, Moderna, mRNA, PF 07/22/2020,06/19/2020 Hepatitis B adult (ENGERIX-B/RECOMBIVAX HB ADULT) vaccine 1 mL IM 05/19/1992,1991,1991 Human Papilloma Virus Vaccin e, Quadrivalent 11/09/2007,06/29/2007,04/30/2007 INFLUENZA, SPLIT VIRUS, TRIVALENT, PF 03/13/2013 ,02/21/2011 Influenza, Injectable, Quadr ivalent, Preservative Free 05/02/2020,03/19/2018 Influenza, Trivalent, MDV, Injectable ,05/02/2020,03/19/2018,06/30,04/07/2016,03/13/2013 Measles, Mumps, and Rubella Vaccine 11/25/1996,1 06/08/1992 Meningococcal Polysaccharide (Groups A, C, Y and W-135) Diphtheria Toxoid Conjugate Vaccine (MCV4P) 03/10/2006 Td(Adult) Unspecified Formulation 04/08/2019 Tetanus Toxoid, Reduced Diph theria Toxoid, and Acellular Pertussis Vaccine, Adsorbed 04/30/2007 Social History Tobacco Use Types Packs/Day Years Used Date Smoking Tobacco: Never Passive Smoke Exposure: Past Smokeless Tobacco: Never Comments:: Alcohol Use Standard Drinks/Week Comments Yes 3 (1 standard drink = 0.6 oz pur e alcohol) Comments Unknown Sex and Gender Information Value Date Recorded Sex Assigned at Female 08/07/2022 4:01 PM EDT Legal Sex Female 11:59 PM EDT Gender Identity Female 08/07/2022 4:01 PM EDT Sexual Orientation Straight 08/07/2022 4: 01 PM EDT Last Filed Vital Signs Vital Sign Reading Time Taken Comments Blood Pressure 134/84 07/17/2024 2:12 PM EST Pulse 79 07/17/2024 2:12 PM EST Temperature 36.7 ??C (98 ??F) 07/17/2024 2:12 PM EST Respiratory Rate - - Oxygen Saturation - - Inhaled Oxygen Concentration - - Weight 72.1 kg (159 lb) 07/17/2024 2:12 PM EST Height 162.6 cm (5' 4 ) 07/19/2023 3:03 PM EST Body Mass Index 27.29 07/19/2023 3:03 PM EST Plan of Treatment Upcoming Encounters Date Type Department Care Team (Late st Contact Info) Description 07/15/2025 1:00 PM EST Follow-Up [facility] [address] [place] [address] Career Placement Services Counselor: Brandt Cueto MD [address] [place] [address] Procedures * Due to [place] [employer] law, this organization might not be sharing negative HIV tests. Procedure Name Priority Date/Time Associated Diagnosis Comments CBC Routine 07/17/2024 3:33 PM EST Arthritis in Crohn's disease C-REACTIVE PROTEIN Routine 07/17/2024 3: 33 PM EST Arthritis in Crohn's disease SEDIMENTATION RATE, AUTOMATED Routine 07/17/2024 3:33 PM EST Arthritis in Crohn's disease from Last 3 Months Results * Due to [place] [employer] law, this organization might not be sharing negative HIV tests. * Sedimentation Rate (07/17/2024 3:33 PM EST) Sed Rate 4 <20 mm/Hr mm/Hr 07/17/2024 3:58 PM EST [facility] Blood Structure of peripheral vein / Unknown Venipuncture / Unknown 07/17/2024 3:33 PM EST 07/17/2024 3:43 PM EST us Brandt Marie MD LAB BLOOD ORDERABLES Final Resul t [facility] [address] [place] [id number], * CBC (07/17/2024 3:33 PM EST) WBC 10.2 3.8 - 10.8 10*3/uL 07/17/2024 4:02 PM EST [facility] RBC 4.56 3.80 - 5.10 10*6/uL 07/17/2024 4:02 PM EST [facility] Hemoglobin 14.4 11.7 - 15.5 g/dL 07/17/2024 4:02 PM EST [facility] Hematocrit 42.6 35.0 - 45.0 % 07/17/2024 4:02 PM EST [facility] MCV 93.4 80.0 - 100.0 fL 07/17/2024 4:02 PM EST [facility] MCH 31.6 27.0 - 33.0 pg 07/17/2024 4:02 PM EST [facility] MCHC 33.8 32.0 - 36.0 g/dL 07/17/2024 4:02 PM EST [facility] RDW 13.4 11.0 - 15.0 % 07/17/2024 4:02 PM EST [facility] Platelets 361 140 - 400 10*3/uL 07/17/2024 4:02 PM EST [facility] MPV 10.6 7.5 - 12.5 fL 07/17/2024 4:02 PM EST [facility] Blood Structure of peripheral vein / Unknown Venipuncture / Unknown 07/17/2024 3:33 PM EST 07/17/2024 3:43 PM EST us Brandt Marie MD LAB BLOOD ORDERABLES Final Resul t [facility] [address] [place] [id number], * C-Reactive Protein (07/17/2024 3:33 PM EST) C Reactive Protein <3.0 <=9.9 mg/L 07/17/2024 4:34 PM EST [facility] Blood Structure of peripheral vein / Unknown Venipuncture / Unknown 07/17/2024 3:33 PM EST 07/17/2024 3:43 PM EST us Brandt Marie MD LAB BLOOD ORDERABLES Final Resul t [facility] [address] [place] [address], [place] from Last 3 Months Insurance BCBS OUT OF STATE PPO Care Teams Silk Screen Printer Helper Relationship Specialty Start Date End Date Michelle Ryder [address] [place] [id number] PCP - General 12/15/16
--- OUTSIDE RECORDS SUMMARY | 2024-10-03 12:50 | XMS_ITS ---
Author Organization [facility] Address [address] [place] [address] [place] [phone] Care Team Providers Care Underwriting Manager Name Role Phone Aleksey SAAVEDRA, Michelle Primary Care Provider Jv Hubbard Jr, David Mcclellan REASON FOR VISIT high stomach pain Problems Problem Type SNOMED Code ICD Code Onset Dates Problem Status W/U Status Risk Notes Problem RUQ pain (R10.11) Active confirmed Problem Flatulence, eructation and gas pain (106406455) Bloating (R14.0) Active confirmed Encounters Encounter Location Date Provider Diagnosis [facility] [address] [place] [phone] 10/02/2024 David Hubbard Jr RUQ pain R10.11 and Bloating R14.0 Assessments Encounter Date Diagnosis (ICD Code) Assessment Notes Treatment Notes Treatment Clinical Notes Section Notes 10/02/2024 RUQ pain (ICD-10 - R10.11) 10/02/2024 Bloating (ICD-10 - R14.0) Plan Of Treatment Pending Test Test Name Order Date LIVER PROFILE 10/02/2024 LIPASE 10/02/2024 CBC w/o DIFF 10/02/2024 US ABD 10/02/2024 Next Appt Details Provider Name:David sanchez Jr, 07/07/2025 09:20:00 AM, [address] [place] [address], [address], [place], [phone], Progress Notes * SEVERO KUO ADOB:[birth year] (33 yo F)Acc No.[id number]:10/02/2024 Patient:SEVERO NASCIMENTO :1990???Age:33 Y???Sex:Female Address:[address] [place] [address], [place], [address] Subjective: * Chief Complaints: * ???High stomach pain * Medical History:? * Surgical History:? * Hospitalization/Major Diagno stic Procedure:? * Medications:? Objective: * Vitals:? * Physical Examination:? Assessment: * Assessment: 1.?RUQ pain - R10.11 (Primar y)???2.?Bloating - R14.0??? Plan: * Treatment: 2.?Bloating?LAB: LIVER PROFILE ?LAB: LIPASE ?LAB: CBC w/o DIFF ?Imaging: US ABD* * Procedure Codes:? * true * Date:? Generated for Juanjo sung/Jarocho/eTransmitting on:?10/03/2024 12:50 PM EDT
--- OUTSIDE RECORDS SUMMARY | 2024-10-03 12:51 | XMS_ITS | Clinical Summary ---
Author Organization [facility] Address [address] [place] [address] Care Team Providers Care Clinical Appeals Reviewer Name Role Phone Michelle Ryder Primary Care Provider [phone] Allergies Active Allergy Reactions Criticality Noted Date [...] and an influenza vaccination today at a [facility] in [place], [place]. ?? I again advised her that [...] reassess her CBC, ESR, and CRP. Ms. 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); Crohn's disease without complication, unspecified gastrointestinal tract location; High risk medication use 07/17/2024 Results Follow-Up [facility] [address] [place] [id number] Diamond Expert: Brandt Cueto MD 07/17/2024 Orders Only [facility] [address] [place] [phone] Diamond Expert: Brandt Cueto MD from Last 3 Months Immunizations Immunization Administration Dates Next Due Covid-19 [...] Toxoid, and Acellular Pertussis Vaccine, Adsorbed 04/30/2007 Family History Medical History Relation Name Comments Crohn's disease Brother Diabetes type II Father Diverticulitis Father Hyperlipidemia Mother Irritable bowel syndrome Mother Migraines Mother Relation Name Status Comments Brother Alive Father Alive Mother Alive Social History Tobacco Use Types Packs/Day Years [...] Info) Description 07/15/2025 1:00 PM EST Follow-Up [facility] [address] [place] [address] Diamond Expert: Brandt Cueto MD [address] [place] [phone] Health Maintenance Due Date Last Done Comments Cervical Cancer Screening 1990 HIV Screening 1990 HPV and Pap Smear 1991 Hepatitis C Screening 1990 Pap Smear 1991 Varicella Vaccines (1 of 2 - 13+ 2-dose series) 11/03/2004 Pneumococcal Vaccine: Pediat naida (0-5 Years) and At-Risk Patients (6-50 Years) (1 of 2 - PCV) 11/03/2010 COVID-19 Vaccine (2023-2 5 season) 2024 06/02/2023, 02/17/2022, 02/14/2021, Additional history exists Alcohol/Substance Use Screening 05/29/2024 Depression Screening and Follow-Up 05/29/2024 Social Drivers of Health Nida ual Screening 05/29/2024 DTaP,Tdap,and Td Vaccines (4 - Td or Tdap) 01/01/2034 01/02/2024, 04/08/2019, 04/30/2007 RSV Vaccine (60+ years old a nd patients) (1 - 1-dose 75+ series) 11/03/2066 Hepatitis B Vaccines Completed 05/19/1992, 1990, 1990 Influenza Vaccine Completed 03/04/2024, , 06/10/2021, Additional history exists Procedures * Due to [place] state law, this organization might not be sharing negative HIV tests. Procedure Name Priority Date/Time Associated Diagnosis Comments CBC Routine 07/17/2024 3:33 PM EST Arthritis in Crohn's disease C-REACTIVE PROTEIN Routine 07/17/2024 3: 33 PM EST Arthritis in Crohn's disease SEDIMENTATION RATE, AUTOMATED Routine 07/17/2024 3:33 PM EST Arthritis in Crohn's disease from Last 3 Months Results * Due to [place] state law, this organization might not be sharing negative HIV tests. * Sedimentation Rate (07/17/2024 3:33 PM EST) Sed Rate 4 <20 mm/Hr mm/Hr 07/17/2024 3:58 PM EST [facility] Blood Structure of peripheral vein / Unknown Venipuncture / Unknown 07/17/2024 3:33 PM EST 07/17/2024 3:43 PM EST us Brandt Marie MD LAB BLOOD ORDERABLES Final Resul t Performing Organization Address City/State/[facility] Co de Phone Number [facility] [address] [place] [phone], * CBC (07/17/2024 3:33 PM EST) WBC 10.2 3.8 - 10.8 10*3/uL 07/17/2024 4:02 PM EST [facility] RBC 4.56 3.80 - 5.10 10*6/uL 07/17/2024 4:02 PM EST [facility] Hemoglobin 14.4 11.7 - 15.5 g/dL 07/17/2024 4:02 PM EST [facility] Hematocrit 42.6 35.0 - 45.0 % 07/17/2024 4:02 PM EST [facility] MCV 93.4 80.0 - 100.0 fL 07/17/2024 4:02 PM EST [facility] MCH 31.6 27.0 - 33.0 pg 07/17/2024 4:02 PM EST [facility] MCHC 33.8 32.0 - 36.0 g/dL 07/17/2024 4:02 PM EST [facility] RDW 13.4 11.0 - 15.0 % 07/17/2024 4:02 PM EST [facility] Platelets 361 140 - 400 10*3/uL 07/17/2024 4:02 PM EST [facility] MPV 10.6 7.5 - 12.5 fL 07/17/2024 4:02 PM EST [facility] Blood Structure of peripheral vein / Unknown Venipuncture / Unknown 07/17/2024 3:33 PM EST 07/17/2024 3:43 PM EST Brandt Marie MD LAB BLOOD ORDERABLES Final Resul t [facility] [address] [place] [address] * C-Reactive Protein (07/17/2024 3:33 PM EST) C Reactive Protein <3.0 <=9.9 mg/L 07/17/2024 4:34 PM EST [facility] Blood Structure of peripheral vein / Unknown Venipuncture / Unknown 07/17/2024 3:33 PM EST 07/17/2024 3:43 PM EST Brandt Marie MD LAB BLOOD ORDERABLES Final Resul t [facility] [address] [place] [address] from Last 3 Months Insurance BCBS OUT OF STATE PPO Care Teams Clinical Appeals Reviewer Relationship Specialty Start Date End Date Michelle Ryder [address] [place] [address] PCP - General 12/15/16
== END 2024-10-03 11:17 | disposition home or self-care (01) ==
LOC: HO.LAB 11:16
PROVIDERS: PCP Internal Medicine Geriatric Medicine; Visit Provider Internal Medicine Gastroenterology
DX: R10.11 Right upper quadrant pain (principal); R14.0 Abdominal distension (gaseous)
CPT/HCPCS: 36415; 80076; 83690; 85027

== ENCOUNTER 2024-11-04 08:25 | Outpatient (REF) | payer BC, SELFPAY ==
--- NOTE | ~2024-11-04 | US_ITS ---
CLINICAL HISTORY: RUQ PAIN, ABD DISTENTION US abdomen complete Comparison: None Findings: The visualized pancreas is normal. The aorta and inferior vena cava are normal caliber. The liver is mildly echogenic. There is no focal liver lesion. Liver length estimated at 13.2 cm. There is no intrahepatic bile duct dilatation. The common duct is 3 mm in diameter. There are multiple gallstones within the gallbladder. Gallbladder wall thickness is estimated at 3.7 mm. The main portal vein is antegrade. The right kidney is 10.9 cm in length. There is a 3 mm nonobstructive calculus within the lower pole of the right kidney. The left kidney is 10.5 cm in length. The spleen is normal. No ascites. IMPRESSION: 1. Cholelithiasis with mild thickening of the gallbladder wall. Acute cholecystitis not excluded. 2. Fatty infiltration of the liver. 3. Small nonobstructive calculus within the right kidney. This document has been electronically signed by: Kathryn King MD on 11/04/2024 14:14:16
--- OUTSIDE RECORDS SUMMARY | 2024-11-04 08:31 | XMS_ITS | Patient Health Record ---
Author Organization [facility] Address [address] [place] [phone] Care Team Providers Care Label Designer Name Role Phone Aleksey SAAVEDRA, Michelle Primary Care Provider David Horn Jr Unavailable Allergies Allergen (clinical drug ingredient) Drug/Non Drug Allergy documented on EMR Reaction Allergy Type Onset Date Status amoxicillin / clavulanate Augmentin Unknown Drug Allergy Active Results Component Value Reference Range Notes Complete Blood Count no Diff Reviewed date:10/04/2024 02:02:27 PM Interpretation: Performing Lab:[facility], [address] [place] [phone] Notes/Report: White Blood Count 9.2 4.8-10.8 X10*3/uL [...] Abs Auto 0.000 0.0-0.012 X10*3/uL Liver Panel Reviewed date:10/04/2024 02:02:18 PM Interpretation: Performing Lab:[facility], [address] [place] [phone] Notes/Report: Bilirubin Total 0.4 0.0-1.0 mg/dL Bilirubin Direct 0.2 0.0-0.5 mg/dL Aspartate Amino Transferase 20 5-31 U/L Alanine Aminotransferase 23 0-31 U/L Total Protein 7.4 6.5-8.0 g/dL Albumin Level 4.4 3.5-5.0 g/dL Alkaline Phosphatase 115 39-117 U/L Lipase Reviewed date:10/04/2024 02:02:11 PM Interpretation: Performing Lab:[facility], [address] [place] [phone] Notes/Report: Lipase 30 8-78 U/L Reason For [...] Notes Problem Flatulence, eructation and gas pain (672860841) Bloating (R14.0) Active confirmed Problem [id number] Gastroesophageal reflux disease without esophagitis (K21.9) Active confirmed Problem 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 [address] [place] [phone] 07/03/2024 David Hubbard Jr Crohns disease K50.90 and Gastroesophageal reflux disease without esophagitis K21.[address] [facility] [address] [place] [phone] 12/07/2023 David Hubbard Jr [facility] [address] [place] [phone] 10/02/2024 David Hubbard Jr RUQ pain R10.11 and Bloating R14.[address] [facility] [address] [place] [phone] 10/04/2024 David Hubbard Jr Assessments Encounter Date Diagnosis (ICD Code) Assessment [...] CBC w/o DIFF 10/02/2024 US ABD 10/02/2024 Future Test Test Name Order Date COLONOSCOPY 08/12/2022 Next Appt Details Provider Name:David Dede sanchez Jr, 07/07/2025 09:20:00 AM, [address], [address], [place], [address], Insurance Providers Payer Name Payer Address Payer Phone Subscriber Number Group Number Insured Name Patient Relationship to Insured Coverage Start Date Coverage End Date [facility] [address] [place], [place] [id number] SEVERO KUO Self - patient is the insured Medical (General) History Medical History History ICD Code Asthma Crohn's disease diagnosed ~ 2000, at that time she had genetic testing done through [facility]. She was followed by pediatric GI at [facility] and had several endoscopies and a colonoscopy. 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 Colonoscopy 07/2014, some scarring of terminal ileum, biopsies fairly unremarkable, colonoscopy 11/18 biopsies normal including terminal ileum Rheumatoid arthritis pneumonia/covid positive may 2022 Gastroesophageal reflux disease Surgical History Surgery Date(Month/Year) c section 03/18/2024
== END 2024-11-04 08:26 | disposition home or self-care (01) ==
LOC: HO.HMGCX 08:25
PROVIDERS: PCP Internal Medicine Geriatric Medicine; Visit Provider Internal Medicine Gastroenterology
DX: R10.11 Right upper quadrant pain (principal); R14.0 Abdominal distension (gaseous)
CPT/HCPCS: 76700

== ENCOUNTER → 2024-11-04 08:29 | Outpatient (BNV) | payer BC, SELFPAY | PROVIDERS: PCP Internal Medicine Geriatric Medicine; Visit Provider Radiology Diagnostic Radiology | DX: K80.20 Calculus of gallbladder without cholecystitis without obstruction (principal); N20.0 Calculus of kidney; K76.0 Fatty (change of) liver, not elsewhere classified | CPT/HCPCS: 76700 ==